=== PATIENT | male | born 1960 | race Caucasian/White ===

== ENCOUNTER 2016-10-20 11:06 | Inpatient (IN) | payer OTHER, MEDICAID ==
[~2016-10-20] VITALS: Ht 182.9 cm; Wt 100.7 kg
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
[~2016-10-20 11:06] MED LIST: NORCO 5-325 MG1 TAB PO
[2016-10-20 11:35] LABS: BASOPHIL % 0.2 %; EOSINOPHIL % 0.2 %; HEMATOCRIT 40.4 % (37.0-53.0); HEMOGLOBIN 13.2 g/dL (12.0-17.0); IMMATURE GRANULOCYTE # 0.1 K/uL (0.0-0.3); IMMATURE GRANULOCYTE % 0.3 %; LYMPHOCYTE # 1.6 K/uL (0.8-4.0); LYMPHOCYTE % 9.6 %; MCH 29.3 pg (27.0-34.0); MCHC 32.7 gm/dL (32.0-36.5); MCV 89.8 fl (83.0-98.0); MONOCYTE # 0.9 K/uL (0.0-1.0); MONOCYTE % 5.8 %; MPV 10.4 fl (9.4-12.4); NEUTROPHIL # (ANC) 13.6 K/uL (1.4-9.0); NEUTROPHIL % 83.9 %; NRBC % 0 /100WBC (0-0.00); PLATELET COUNT 148 K/uL (150-450); RDW-CV 12.7 % (11.9-14.6); WBC 16.2 K/uL (4.0-11.0)
[2016-10-20 11:37] LABS: PCO2 44 mmHg (35-45)
[2016-10-20 11:39] LABS: BICARBONATE 23.9 mmol/L (18.0-23.0); PO2 21 mmHg (80-90)
[2016-10-20 11:47] LABS: ANION GAP 10.2 (10.0-19.0); BLOOD UREA NITROGEN 14 mg/dL (6-24); CHLORIDE 112 mMol/L (96-110); CREATININE 0.9 mg/dL (0.6-1.3); ESTIMATED GFR (MDRD EQUATION) > 60; POTASSIUM 4.2 mMol/L (3.7-5.1); SODIUM 143 mMol/L (135-145)
[2016-10-20 11:53] LABS: INR - (THERAPEUTIC) 1.04 (0.92-1.07); PROTIME 10.9 SECONDS (9.8-11.4); PTT 26 SECONDS (25-32)
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
[2016-10-21 05:27] LABS: BASOPHIL % 0.2 %; HEMATOCRIT 36.6 % (37.0-53.0); IMMATURE GRANULOCYTE # 0.1 K/uL (0.0-0.3); IMMATURE GRANULOCYTE % 0.4 %; LYMPHOCYTE # 0.7 K/uL (0.8-4.0); LYMPHOCYTE % 5.3 %; MCH 29.6 pg (27.0-34.0); MCHC 32.8 gm/dL (32.0-36.5); MCV 90.4 fl (83.0-98.0); MONOCYTE # 0.7 K/uL (0.0-1.0); MONOCYTE % 5.2 %; MPV 10.8 fl (9.4-12.4); NEUTROPHIL # (ANC) 11.6 K/uL (1.4-9.0); NEUTROPHIL % 88.9 %; NRBC % 0 /100WBC (0-0.00); RBC 4.05 M/uL (4.00-6.00)
[2016-10-21 05:28] LABS: PLATELET COUNT 117 K/uL (150-450)
[2016-10-21 05:48] LABS: ALK PHOS 44 IU/L (33-138); ALT 18 IU/L (12-78); AST 21 IU/L (10-40); BLOOD UREA NITROGEN 9 mg/dL (6-24); CALCIUM 7.6 mg/dL (8.5-10.5); CHLORIDE 107 mMol/L (96-110); CO2 26 mMol/L (22-32); CREATININE 0.8 mg/dL (0.6-1.3); ESTIMATED GFR (MDRD EQUATION) > 60; SODIUM 139 mMol/L (135-145); TOTAL BILIRUBIN 0.7 mg/dL (0.0-1.5); TOTAL PROTEIN 5.4 g/dL (6.0-8.4)
[2016-10-21 06:30] LABS: BILIRUBIN URINE NEGATIVE (NEGATIVE); BLOOD URINE 50 /UL (NEGATIVE); COLOR URINE YELLOW (YELLOW); GLUCOSE URINE 50 mg/dL (NEGATIVE); KETONE URINE NEGATIVE (NEGATIVE); LEUKOCYTES URINE NEGATIVE /UL (NEGATIVE); NITRITE URINE NEGATIVE (NEGATIVE); PROTEIN URINE 15 mg/dL (NEGATIVE); TURBIDITY URINE CLEAR (CLEAR); UROBILINOGEN URINE 1 mg/dL (NORMAL)
[2016-10-21 06:38] LABS: BACTERIA URINE NEGATIVE (NEGATIVE); EPITHELIAL URINE 0-2 #/HPF (NEGATIVE); WBC URINE RARE #/HPF (NEGATIVE)
--- NOTE | 2016-10-21 13:18 | NUR ---
10/21/16: SECOND ASSESSMENT WAS NOT CHARTED DUE TO THE PT BEING IN SURGERY AT THIS TIME. YUERN
--- NOTE | 2016-10-21 17:07 | NUR ---
Significant Event: PT WENT TO SURGERY FROM [id number] FOR AN ORIF OF L)TIBIAL PLATEAU FRACTURE. PT IS ALERT AND ORIENTED X3. PERRLA. ABLE TO WIGGLE TOES TO L)FOOT; HAS FULL SENSATION; DENIES ANY NUMBNESS/TINGLING. STRICT NON-WEIGHT BEARING TO L)LEG. VITAL SIGNS STABLE. ON 2 LITERS PER NASAL CANNULA; PT IS A SMOKER AND NEEDS ENCOURAGEMENT WITH INCENTIVE SPIROMETER. BRADYCARDIA AT TIMES WITH RATES IN THE 50'S. HANLEY PATENT, DRAINING YELLOW URINE. R)FOOT PUMP ON. IV TO L)WRIST SALINE LOCKED; IV TO R)WRIST INFUSING IV FLUIDS WITHOUT COMPLICATIONS. REGULAR DIET; HAS TOLERATED JELLO AND APPLESAUCE WELL. CAM BOOT TO L)FOOT IS INTACT; L)LEG IMMOBILIZER IN PLACE. ICE PACK APPLIED TO L)KNEE. 2 PERCOCETS GIVEN AT 1356 IN PACU. 4 MG IV MORPHINE GIVEN AT 1610. HAS COMPLAINED OF L)LEG PAIN. HAS BEEN AT BEDSIDE SINCE RETURNING FROM PACU. Follow up: PAIN MANAGEMENT, CONTINUE TO MONITOR
[2016-10-22 04:30] LABS: BASOPHIL % 0.1 %; EOSINOPHIL # 0.1 K/uL (0.0-0.5); EOSINOPHIL % 0.4 %; HEMATOCRIT 32.4 % (37.0-53.0); HEMOGLOBIN 10.6 g/dL (12.0-17.0); IMMATURE GRANULOCYTE # 0.1 K/uL (0.0-0.3); IMMATURE GRANULOCYTE % 0.4 %; LYMPHOCYTE # 1.2 K/uL (0.8-4.0); LYMPHOCYTE % 8.4 %; MCH 29.9 pg (27.0-34.0); MCHC 32.7 gm/dL (32.0-36.5); MCV 91.3 fl (83.0-98.0); MONOCYTE # 0.9 K/uL (0.0-1.0); MONOCYTE % 6.3 %; MPV 10.8 fl (9.4-12.4); NEUTROPHIL % 84.4 %; NRBC % 0 /100WBC (0-0.00); PLATELET COUNT 103 K/uL (150-450); RBC 3.55 M/uL (4.00-6.00); WBC 14.2 K/uL (4.0-11.0)
--- NOTE | 2016-10-22 05:53 | NUR ---
PT WITH IMPROVING PAIN CONTROL THIS SHIFT. PEROCET GIVEN X3 AND MORPHINE IVP GIVEN X1. PT CONTINUES TO HAVE ICE ON KNEE AT ALL TIMES. IMMOBILIZER REMAINS IN PLACE. PT STOOD AND PIVOTED FROM BED TO CHAIR, WAS UP IN CHAIR X1H, THEN STOOD AND PIVOTED BACK TO BED. CMS CHECKS REMAIN INTACT OTHER THAN +2-+3 PITTING EDEMA IN LEFT LOWER EXTREMITY. ELIEZER SCOTT RN
--- NOTE | 2016-10-22 12:10 | NUR ---
Significant Event: PT ALERT AND ORIENTED X3. DENIES NUMBNESS/TINGLING. PERRLA. STRICT NON-WEIGHT BEARING TO L)LEG!!! 2-ASSIST/GAIT BELT/WALKER. HAS BEEN UP IN THE CHAIR SINCE BREAKFAST. O2 AT 1 LITER PER NASAL CANNULA. BRADYCARDIA WITH RATES IN THE 50'S. HANLEY PATENT, DRAINING YELLOW URINE. R)DEB HOSE ON; R)FOOT PUMP ON. IV TO L)WRIST SALINE LOCKED. REGULAR DIET; GOOD APPETITE. LAST BM ON 10/19/16; PASSING FLATUS. L)LEG IMMOBILIZER INTACT AND L)CAM BOOT ON. ABLE TO WIGGLE TOES TO L)FOOT. 1 PERCOCET GIVEN AT 0858. 4 MG IV MORPHINE GIVEN ABOUT 1145. CARES HANDED OFF TO MADDY LOVE RN THIS MORNING. Follow up: ENCOURAGE INCENTIVE SPIROMETER, MONITOR PAIN
--- NOTE | 2016-10-22 17:50 | NUR ---
Pt up to chair. STRICT NON-WT BEARING TO LEFT LEG PER . Pt alert and oriented x3. santa removed per nursing protocol at 1700. Pt can hop on R foot with walker,gait belt and one assist to bathroom. Morphine given 4 mg at 1145 for c/o pain in left leg. Lyme 2 tabs given at 1530. Relief stated. pt sleeping at 1620. VSS. Neuro assessment intact. Adequate sensation and movement in left extremity. Saline locked.
--- NOTE | 2016-10-23 06:05 | NUR ---
Significant Event: PATIENT IS ALERT AND ORIENTED. VERY PLEASANT. UP X1 ASSIST. VERY STRICT NWB STATUS TO LEFT LOWE EXT. IMMOBILIZER ON AT ALL TIMES. COMPLAINS OF KNEE DISCOMFORT. LAST PERCOCET AT 0130. HX SMOKING. MOIST NON-PRODUCTIVE COUGH. O2 AT 1.5 L PER NC AND MAINTAINS O2 SAT OF 93%. Follow up:
--- NOTE | 2016-10-23 14:59 | NUR ---
Significant Event: PT A&O x3. VSS, on 1L per nasal cannula. Pain well controlled with percocet 2 tabs last at 1120. PT ambulates with walker, gait belt and 1 assist. Immobilizer and cam boot to L)leg/foot, NWB on L)leg. IV patent. Possible dc to home tommorow. Follow up:
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
--- NOTE | 2016-10-24 05:50 | NUR ---
Significant Event: Patient A/O x 3. Perrla. Denies N/T. Pain to left knee, rating at a 5-7 this shift. Moves upper extremities without difficulty as well as lower right. Left leg is in immobilizer and cam boot. Can wiggle left toes. Edema present. VSS. Afebrile. Lungs clear and dim in bases on 1.5 L this shift. Moist cough. No bm this shift. SBA, uses walker, strict non-weight bearing to the left leg. PIV to left wrist SL. Percocet given last at 0222 x 2 tabs. [place] given last at 0438 x 2 tabs. Gabapentin given at HS, relief noted. Follow up: Home with home health when ready.
--- NOTE | 2016-10-24 11:30 | NUR ---
Spoke with patient this a.mPravin Did observe him and his working with therapy. contacting [employer] to borrow walker, crutches, w/c etc. If unable to borrow them they will buy them. Patient says he thinks he is going home today. Will follow.
[2016-10-24] MEDS ORDERED: COLACE100 MG PO (11:57)
[2016-10-24] MEDS ORDERED: PEPCID20 MG PO (11:58)
[2016-10-24] MEDS ORDERED: LOVENOX 3030 MG/0.3 SUB-Q (11:58)
[2016-10-24] MEDS ORDERED: NEURONTIN300 MG PO (11:59)
[2016-10-24] MEDS ORDERED: PERCOCET 5-3251 EACH PO (12:02)
[2016-10-24] MEDS ORDERED: TYLENOL EXTRA500 MG PO (12:04)
--- NOTE | 2016-10-24 14:52 | NUR ---
1300 Reviewed DC plan with pt and his spouse. Acknowledges understanding of good pain control, s/s of increase pain, swelling, redness, strict non weight bearing on L leg. Cam boot/immobilizer to remain on at all times. Rx for meds and appointment cards given to pt. Spouse was able to procure a walker prior to DC. Pt was dismissed in stable condition without concerns.
[2016-12-05] MEDS ORDERED: ASPIRIN LO-DOSE81 MG PO (09:51)
== END 2016-10-24 13:10 | disposition disaster alternative care site (69) | DRG 494 ==
LOC: GACC 11:06 → GNTU 12:24
PROVIDERS: Orthopaedic Surgery; ADMIT Surgery
DX: S82.142A Displaced bicondylar fracture of left tibia, initial encounter for closed fracture (principal); I95.9 Hypotension, unspecified; S82.52XA Displaced fracture of medial malleolus of left tibia, initial encounter for closed fracture; R00.1 Bradycardia, unspecified; S91.312A Laceration without foreign body, left foot, initial encounter; V23.4XXA Motorcycle driver injured in collision with car, pick-up truck or van in traffic accident, initial encounter; N32.9 Bladder disorder, unspecified; F17.200 Nicotine dependence, unspecified, uncomplicated; Z85.51 Personal history of malignant neoplasm of bladder; R40.2413 Glasgow coma scale score 13-15, at hospital admission
CPT/HCPCS: C1713; G0390; G0480; J0690; J1170; J1650; J2250; J2270; J3010; J7030; J7120; J7121; Q9967

== ENCOUNTER → 2016-10-30 | Outpatient (CLI) | payer OTHER ==
[~2016-10-30] MED LIST changes: +ASPIRIN LO-DOSE81 MG PO; +COLACE100 MG PO; +KEFLEX500 MG PO; +LOVENOX 3030 MG/0.3 SUB-Q; +NEURONTIN300 MG PO; +NICOTINE PATCH1 EACH TRANS; +OXYCONTIN EXTEN10 MG PO; +PEPCID20 MG PO; +PERCOCET 5-3251 EACH PO; +SURFAK240 MG PO; +TYLENOL EXTRA500 MG PO
--- NOTE | ~2016-10-30 | ENPV ---
Vascular Lower Extremities DVT Study Procedure Demographics Patient Name HADLEY HUNT Date of Study 10/30/2016 Patient Number [id number] Gender Male Date of 1960 Age 56 Visit Number [id number] Height Accession Number [id number] Weight Room Number BSA BMI Referring Markus Chua MD Interpreting Kyle Diego MD Physician Physician Physician Ordering Physician [employer] Lounge Attendant Susan Michele [facility] Conclusions Summary Normal venous duplex examination of the legs bilaterally with normal venous Doppler signals noted throughout. No evidence of thrombophlebitis is noted bilaterally in the deep and superficial veins of the legs. Small calf thrombi cannot be excluded. Procedure Type of Study: Veins:Lower Extremities DVT Study, Lower Extremity Left. Appropriate Use Criteria:9 Patient Status:Routine. Study Location:Inpatient Portable. Technical Quality:Adequate visualization. Velocities are measured in cm/s ; Diameters are measured in cm Left Lower Extremities DVT Study Measurements Left 2D and Doppler Measurements + + + + +------+------+ + !Location !Visualized!Compressibility!Thrombosis!Signal!Reflux!Reflux ! ! ! ! ! ! ! !(sec) ! + + + + +------+------+ + !GSV Thigh !Yes !Yes !None !Phasic!No ! ! + + + + +------+------+ + !Common !Yes !Yes !None !Phasic!No ! ! !Femoral ! ! ! ! ! ! ! + + + + +------+------+ + !Prox !Yes !Yes !None !Phasic!No ! ! !Femoral ! ! ! ! ! ! ! + + + + +------+------+ + !Mid Femoral!Yes !Yes !None !Phasic!No ! ! + + + + +------+------+ + !Dist !Yes !Yes !None !Phasic!No ! ! !Femoral ! ! ! ! ! ! ! + + + + +------+------+ + !Popliteal !Yes !Yes !None !Phasic!No ! ! + + + + +------+------+ + !Gastroc !Yes !Yes !None !Phasic!No ! ! + + + + +------+------+ + !PTV !Yes !Yes !None !Phasic!No ! ! + + + + +------+------+ + !Peroneal !Yes !Yes !None !Phasic!No ! ! + + + + +------+------+ + Impressions Left Impression Negative for DVT Signature dtt: SERGE BRANCH dtd: 10/30/16 1519 Physician Self Edit
== END | disposition disaster alternative care site (69) ==
LOC: GCAR 15:00
DX: M79.605 Pain in left leg (principal); M79.89 Other specified soft tissue disorders

== ENCOUNTER 2016-11-02 14:17 | Inpatient (IN) | payer OTHER, MEDICAID ==
[~2016-11-02] VITALS: Ht 182.9 cm; Wt 93.2 kg
--- NOTE | ~2016-11-02 | CON ---
PATIENT'S NAME: HADLEY MELENDEZ [facility] AGE: 56 Y [address] ROOM: [address] [address] LOCATION: [facility] ADMIT DATE: 11/02/2016 Consultation DISCHARGE DATE: FAMILY PHYSICIAN: Arslan Godinez DO ATTENDING PHYSICIAN: MARINA WETZEL Mr. Melendez was brought to the hospital for parenteral analgesia yesterday (approximately 1 week status post open reduction and internal fixation of left bicondylar tibial plateau fracture and left ankle medial malleolus fracture). He slept well last night. The amount of swelling in his legs has decreased dramatically with elevation overnight (despite the fact that the patient had repeatedly emphatically reassured us that he has been keeping his leg elevated at home). There had been mild erythema at the anterior jo and dorsal foot, but this has resolved over the last 24 hours. The patient felt almost well enough to return home early this afternoon. In fact, he requested to be discharged. However, pain has increased significantly, and he reports inadequate analgesia. He localizes his discomfort to the distal half of the lower leg (circumferentially). He denies numbness or paresthesias at his foot. He is able to actively dorsiflex his great toe and ankle against gravity and plantar flex with 4/5 motor strength. Part of the incision at the knee and medial ankle are clean, dry, and intact without erythema. There was minimal swelling at the knee. The posterior calf compartment is soft. The proximal half of the anterior compartment is soft and nontender. There is tenderness at the distal half of the anterior compartment. I am concerned regarding the potential for an evolving compartment syndrome. I recommended that he be taken to the operating room for compartment pressure assessment and anterior compartment fasciotomy. We reviewed risks, benefits, limitations, and alternatives to this. We have discussed potential adverse sequelae of compartment syndrome. We specifically discussed the potential for infection, neurovascular complications, and the potential that we might not be able to close the wound primarily and, thus, the potential that he might need to be brought back to the operating room for fasciotomy closure at a later date. MD DEBBIE COLEY/edda /[id number] d: 11/04/16 0332 t: 11/16/16 2036, CONSULTATION REPORT
--- NOTE | ~2016-11-02 | OR ---
PATIENT'S NAME: HADLEY HUNT [facility] AGE: 56 Y [address] ROOM: [place] [address] LOCATION: [facility] [place] ADMIT DATE: 11/02/2016 OR/Procedure Report DISCHARGE DATE: FAMILY PHYSICIAN: Arslan Godinez DO ATTENDING PHYSICIAN: MARINA WETZEL SURGEON: Marina Wetzel MD ANIMAL NURSE: DATE OF PROCEDURE: 11/03/2016 PREOPERATIVE DIAGNOSIS: Potential evolving left anterior compartment syndrome. POSTOPERATIVE DIAGNOSIS: No compartment syndrome. PROCEDURE PERFORMED: 1. Left leg anterior and posterior compartment pressure measurement. 2. Left anterior compartment fasciotomy. ANESTHESIA: Spinal. ESTIMATED BLOOD LOSS: Less than 5 mL. TOURNIQUET TIME: 0 minutes. INDICATION FOR PROCEDURE: This is a 56-year-old male complaining of inadequate analgesia and significant escalating left anterior distal leg pain. He is over 1 week status post open reduction and internal fixation of a left bicondylar tibial plateau fracture and left medial malleolus fracture. He sustained an associated abrasion at his anterior jo. He was discharged home approximately 48 hours after the surgery but has been containing with persistent and progressive discomfort. He has had a negative Doppler. He had considerable swelling of his leg when he was admitted to for observation yesterday. The swelling in the leg had decreased significantly with elevation of the leg over the last 24 hours. The patient had previously reassured us that he had been elevating the leg significantly at home, but thought does not appear to be case. Despite decreased swelling and resolution of erythema, he complains of inadequate analgesia. There is significant tenderness over the distal half of the anterior compartment. This is where he presently localizes the majority of his discomfort. We have checked multiple times to be certain that his brace is not in this area. In fact, I released the straps and his brace this afternoon and pain has continued to escalate in this area despite the brace being off. Interestingly, he has minimal discomfort at the knee and the proximal half of the leg. Due to concerns regarding potential evolving compartment syndrome, the patient was presently taken to the operating room to be absolutely certain that this is not the case. Risks, benefits, PATIENT'S NAME: HADLEY HUNT [facility] AGE: 56 Y [address] ROOM: [place] [address] LOCATION: [facility] [place] ADMIT DATE: 11/02/2016 OR/Procedure Report DISCHARGE DATE: FAMILY PHYSICIAN: Arslan Godinez DO ATTENDING PHYSICIAN: MARINA WETZEL limitations, and alternatives to fasciotomy and compartment pressure assessments have been reviewed. We have specifically discussed the potential for infection and sensory nerve trauma. Adverse sequelae of compartment syndrome have been reviewed as well. DESCRIPTION OF PROCEDURE: The patient positioned supine after administration of spinal anesthesia. The brace was removed from the left leg. Photograph of the left leg was obtained documenting no residual erythema and mild swelling at the left foot and ankle but no swelling at the left proximal calf or knee. The left lower extremity was prepped and draped with vigilant sterile technique. Prophylactic antibiotics had been administered. No tourniquet was utilized. The [employer] compartment pressure josie was calibrated and superficial posterior and anterior compartment pressures were assessed. Posterior compartment pressure was 8, anterior compartment pressure was 15. A 10 cm anterolateral longitudinal incision was made over the middle to distal thirds of the anterior compartment. Blunt dissection proceeded down to the fascia. The fascia was divided in line with the overlying skin incision. The underlying musculature appeared normal and contracted well when stimulated with electrocautery. There was no discoloration of the musculature. The anterior compartment did not appear to have been under any pressure. The incision was thoroughly irrigated with sterile saline containing bacitracin. The fascia was not closed. The skin was closed with superficial buried interrupted 3-0 Vicryl followed by surgical ene. The dressings consisted of Xeroform gauze followed by sterile gauze, ABD pad, and cast padding. The heel was well padded with cast padding. The knee brace was reapplied with the knee locked at 30 degrees of flexion. There were no complications. MD DEBBIE COLEY/edda /[id number] d: 11/04/16 0331 t: 11/16/162038, OPERATIVE SUMMARY
--- NOTE | ~2016-11-02 | DS ---
PATIENT'S NAME: HADLEY HUNT [facility] AGE: 56 Y [address] ROOM: [place] [address] LOCATION: [facility] [place] ADMIT DATE: 11/03/2016 Discharge Summary DISCHARGE DATE: 11/06/2016 FAMILY PHYSICIAN: Arslan Godinez DO ATTENDING PHYSICIAN: Justin Aparicio This is a 56-year-old male. PRIMARY DIAGNOSIS: Potential evolving compartment syndrome, left lower extremity. SECONDARY DIAGNOSIS: Tobacco use. PROCEDURE PERFORMED: Left leg anterior and posterior compartment pressure measurement and left anterior compartment fasciotomy. POSTOPERATIVE DIAGNOSIS: No compartment syndrome. HISTORY: The patient is a 56-year-old male, complaining of inadequate analgesia and significant escalating left anterior distal leg pain. He is over 1 week status post open reduction and internal fixation of left bicondylar tibial plateau fracture and left medial malleolus fracture. He sustained an associated abrasion at his anterior jo. He was discharged home approximately 48 hours after the surgery, but has been complaining of persistent and progressive discomfort. He has had a negative Doppler. He was admitted on 11/03 for pain management for observation. Despite decreased swelling and resolution of erythema, he complained of inadequate analgesia. Please refer to his consultation notes as well as his admission history and physical. HOSPITAL COURSE: The patient underwent the above specified procedure on 11/03/2016 without complications. Spinal anesthesia was utilized. He received 24 hours of perioperative prophylactic antibiotics. He remained hemodynamically stable and neurovascularly intact throughout his entire hospital course. His postoperative deep venous prophylaxis consisted of low- molecular-weight heparin, early mobilization, and pneumatic compression devices. He received daily physical therapy for gait training and transfer training, and progressed decently in physical therapy on his date of discharge on 11/06/2016. Incisions were healing well and showed no signs of infection. DISPOSITION: Home. DISCHARGE DIET: As tolerated. DISCHARGE ACTIVITY: He is to be nonweightbearing of the left lower extremity. PATIENT'S NAME: HADLEY HUNT [facility] AGE: 56 Y [address] ROOM: [place] [address] LOCATION: [facility] [place] ADMIT DATE: 11/03/2016 Discharge Summary DISCHARGE DATE: 11/06/2016 FAMILY PHYSICIAN: Arslan Godinez DO ATTENDING PHYSICIAN: Justin Aparicio There is to be no strengthening. There are strict left heel decubitus ulcer precautions. No contact or pressure to the left AFO. He is to wear his AFO at all times. He is to wear his left knee immobilizer brace at all times. He is to have no range of motion of the left knee. There is to be no dressing changes. He is to notify Dr. Aparicio immediately if he experiences increased pain, fevers, chills, erythema, or drainage. DISCHARGE MEDICATIONS: 1. Lovenox 30 mg subcutaneous twice daily for 30 days for postoperative DVT prophylaxis. His last dose will be on December 03, 2016. 2. OxyContin extended release 10 mg 1 tablet every 12 hours p.r.n. for pain. 3. Percocet 5/325 mg 1 to 2 tablets p.o. every 6 hours p.r.n. for pain. 4. Gabapentin 300 mg 1 tablet b.i.d. for pain. 5. Nicotine patch 21 mg transdermal every 24 hours for smoking cessation. He was then instructed to continue all his other preadmission medications as instructed by his internal medicine doctor. FOLLOWUP: Followup appointment is to be with Dr. Aparicio's office on 11/10/2016 for his initial postoperative evaluation. SOHAN TEAGUE PA-C FOR MD MITCHELL COLEY/edda /[id number] d: 11/21/16 0338 t: 11/24/16 1553, DISCHARGE SUMMARY
[~2016-11-02 14:17] MED LIST changes: -ASPIRIN LO-DOSE81 MG PO; -KEFLEX500 MG PO; -NICOTINE PATCH1 EACH TRANS; -OXYCONTIN EXTEN10 MG PO; -SURFAK240 MG PO
[2016-11-02] MEDS ORDERED: OXYCONTIN EXTEN10 MG PO (16:23)
[2016-11-02] MEDS ORDERED: NICOTINE PATCH1 EACH TRANS (16:26)
[2016-11-02] MEDS ORDERED: KEFLEX500 MG PO (16:26)
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
--- NOTE | 2016-11-02 17:01 | NUR ---
Significant Event: PT ARRIVED ON FLOOR AT 1430. PT HAS INCREASED PAIN FROM LACERATION ON LT LEG AND HEEL. LT LEG ELEVATED UP HIGH ON PILLOWS. ICE TO LT LEG. IV DILUADID AND PERCOCET GIVEN. IV TORODOL ALSO GIVEN. PT RATED PAIN AT A 7 UPON ARRIVAL. RESTS QUIETLY IN THE BED. LT FOOR PULSE STRONG WITH DOPPLER. Follow up:
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
--- NOTE | 2016-11-03 12:30 | NUR ---
SPOKE TO PATIENT REGARDING CM AND OUR ROLE. PATIENT LIVES IN OWN HOME WITH SPOUSE HE HAS FRONT WHEELED WALKER AT HOME. HE HAS A RAMP THAT GOES INTO HIS HOUSE. PATIENT DOES NOT ANTICIPATE ANY DISCHARGE NEEDS AT THIS TIME. PATIENT IS PLANNING ON RETURNING HOME ONCE HE IS READY FOR DISCHARGE.
--- NOTE | 2016-11-03 14:24 | NUR ---
Significant Event: PT ALERT AND ORIENTED. UP TO THE BATHROOM WITH 1 ASSIST. PT HAS INCREASED PAIN SINCE BEING UP. HAS LT LEG ELEVATED ON 4 PILLOWS AND ICE UNDER LEG. TAKES PERCOCET EVERY 2 HOURS. IV MORPHINE PUSH GIVEN AFTER RETURNING TO BED. DECREASED PAIN TO A 5. PERCOCET GIVEN THIS AFTERNOON. WILL UPDATE YOU WITH LAST DOSE. DRESSING TO LEG AND BRACE INTACT. PEDAL PULSE OBTAINED ER DOPPLER DUE TO EDEMA. UNSURE OF DISCHARGE DATE. Follow up:
--- NOTE | 2016-11-03 18:37 | NUR ---
Assumed cares at 1500, patient was feeling fairly comfortable. Refused to get OOB. Left leg was maximally elevated and iced. Pneumatic to right lower extremity. Pain started to increase around 1700. Gave Percocet and Morphine as ordered. Pt continued to complain of increasing pain. Not consistent on location of pain. One assessment was calf pain, then ankle pain, then jo pain. Dr. Aparicio came to the room and assessed patient as well. He noted no signs of skin breakdown or compartment syndrome. Perplexed by the inconsistent pain locations and change in patient condition. He stated that the leg looked much better than yesterday. I encouraged him to wiggle his toes, elevate and ice as directed by Dr. Aparicio. Pt did have an increase in temp and lungs sounded a little coarse. I instructed to him to use and show me he is using his spirometer. I instructed him on the importance of use and that he needed to use it every hour WA, 10 breaths. Brace was left opened and incisions as Dr. Aparicio instructed to let them remain that way. Will update Dr. Aparicio on condition within one hour.
--- NOTE | 2016-11-04 06:01 | NUR ---
Significant Event: Patient at the beginning of the shift the temperature was a high as 100.9, but better now. MD took patient to surgery for L) leg fasciotomy. From PACU at 2335. Slight movement in foot. Denies numbness and tingling. On 1 L of oxygen nasal cannula. Percocet last at 0438. Morphine at 0538. Leg brace on. L) heel decubitus precautions. L) heel pad on at all times. No ROM to L) knee. Voids without difficulty. Dressing is clean, dry and intact. Follow up:
--- NOTE | 2016-11-04 07:16 | NUR ---
At 0700 assessment the patient rated pain 3 out of 10. He said it was tolerable. He complained of no pain or numbness or tingling in R) leg or foot when asked to move. VSS. CSM WNL. Weaned off of oxygen.
--- NOTE | 2016-11-04 13:10 | NUR ---
Significant Event: AOx3. VSS. CSM WNL. NWB to L) leg. Dressing CDI. Brace on at all times. Percocet given Q2hrs PRN for pain. On room air. Nicotine patch on L) arm. IV SL. Had bag bath this morning. Voids per urinal. Elevate and ice to L)leg. Follow up:
--- NOTE | 2016-11-05 03:53 | NUR ---
Patient alert and oriented, can be agitated at times, patient stated his ankle got "twisted" during repositioning however leg brace, chidi wrap and heel protecter where all in place during repositioning, called and notified him of the patient statement xrays where done of the ankle, still has lots of pain in the ankle has had IV Morphine and percocet for pain control, has rested very well this shift.
--- NOTE | 2016-11-05 09:28 | NUR ---
Significan Event: Pt AOX3. VSS, CSM WNL. Brace to left leg on and intact. Keep left leg elevated and iced. Nothing under left heel. NWB to left. Up with one assist, walker and gait belt. Typically refuses to get out of bed despite education of future complications. Pain is tolerable this morning with a rating of 4. States that he is going to a long term until he feels comfortable getting up without pain. Encourage IS. Follow up:
--- NOTE | 2016-11-05 19:07 | NUR ---
Patient is alert and oriented. Took over cares at 1000. VSS, on room air. Non-weight bearing to L) leg. Dressing with braces on lower L) leg, knee incision from previous surgery is open to air with steri-strips. Complaints of pain throughout the shift with Percocets given around every two hours, last at 1850. 1 assist with walker and gait belt. Up to chair for all meals. Nothing under left heel. Plans for placement at SNF.
--- NOTE | 2016-11-06 04:38 | NUR ---
Significant Event: Patient requests percocet 1 tab every 2 hours to help control his pain. Reports pain in right ankle at 4-5. Very particular about his transfers and cares. Alert and orientated. Needs encouragement to increase activity. Neuro check ok. Follow up: Continue to monitor
[2016-11-06] MEDS ORDERED: SURFAK240 MG PO (12:13)
--- NOTE | 2016-11-06 12:50 | NUR ---
D:Orders received for patient to be dismissed. I:Dismissal instructions were prepared and reviewed with the patient and his family. The following instructions were reviewed: diet and activity recommendations for home as outlined by Loida Mcclendon PA-C, abnormal s/s to monitor for and to report to the MD if they occur, home medications/new prescription medications, dressing/brace care for home, and plans for pt to follow up with Dr. Aparicio on Sunday11/10/16 for suture removal. Lauro teaching reviewed and given to pt on the followint topics: Colace, Preventing DVT After Surgery, Having Ankle Fracture Open Reduction & Internal Fixation. R:The patient verbalized understanding of above teaching and denied further questions at this point in time. P:The patient's primary nurse, Helen HASKINS, was informed that the dismissal teaching had been completed. The virtual tech was going to take the paperwork in for the patient to have and sign. The patient will be dismissed later this afternoon. Marcus HASKINS
--- NOTE | 2016-11-06 15:25 | NUR ---
Pt discharged at 1430 to go home with . He is up with one assist. No weight bearing left leg. Pt keeps left leg elevated high with no pressure on heel. He has refused ice to foot/ankle. Pt has had percocet po with last at 1400 for pain relief rated at 4 at that time. Pt CSM WNL to left foot. Good pedal pulse, toes warm, freeman well. states sensation to touch. Some edema bottom of foot. Has brace on leg and AFO on left foot. Skin checked left heel under cast padding that didn't have other dressing on it and no pressure areas noted. Pt uses IS at 2530. Discharge instructions given and pt discharged with and belongings in stable condition
[2016-12-05] MEDS ORDERED: ASPIRIN LO-DOSE81 MG PO (09:51)
== END 2016-11-06 14:40 | disposition disaster alternative care site (69) | DRG 941 ==
LOC: G3N 14:17 → GMSU 11-03 21:30
PROVIDERS: ADMIT Orthopaedic Surgery
PROC: 0KNT0ZZ Release Left Lower Leg Muscle, Open Approach (ICD-10-PCS; principal; 2016-11-03)
DX: G89.18 Other acute postprocedural pain (principal); M79.662 Pain in left lower leg; S80.812A Abrasion, left lower leg, initial encounter; W54.1XXA Struck by dog, initial encounter; Z87.81 Personal history of (healed) traumatic fracture; Z72.0 Tobacco use
CPT/HCPCS: G0378; G0379; J0690; J1170; J1650; J1885; J2270; J3480; J7030

== ENCOUNTER → 2016-12-08 | Day surgery (SDC) | payer SELFPAY ==
[~2016-12-08] VITALS: Ht 182.9 cm; Wt 90.3 kg
[~2016-12-08] MED LIST changes: +ASPIRIN LO-DOSE81 MG PO; +KEFLEX500 MG PO; +NICOTINE PATCH1 EACH TRANS; +OXYCONTIN EXTEN10 MG PO; +SURFAK240 MG PO
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
[2016-12-08 07:00] LABS: BASOPHIL % 0.4 %; EOSINOPHIL # 0.2 K/uL (0.0-0.5); EOSINOPHIL % 2.2 %; HEMOGLOBIN 14.3 g/dL (12.0-17.0); IMMATURE GRANULOCYTE % 0.4 %; LYMPHOCYTE # 2.3 K/uL (0.8-4.0); LYMPHOCYTE % 22.4 %; MCV 91.5 fl (83.0-98.0); MONOCYTE # 0.7 K/uL (0.0-1.0); MPV 9.7 fl (9.4-12.4); NEUTROPHIL % 67.6 %; NRBC % 0 /100WBC (0-0.00); RDW-CV 13.8 % (11.9-14.6); WBC 10.4 K/uL (4.0-11.0)
[2016-12-08 07:01] LABS: HEMATOCRIT 43.9 % (37.0-53.0); MCH 29.8 pg (27.0-34.0); MCHC 32.6 gm/dL (32.0-36.5); PLATELET COUNT 238 K/uL (150-450)
[2016-12-08 07:15] LABS: ALBUMIN 3.8 gm/dL (3.5-5.0); ALK PHOS 77 IU/L (33-138); ALT 22 IU/L (12-78); ANION GAP 11.2 (10.0-19.0); AST 14 IU/L (10-40); BLOOD UREA NITROGEN 17 mg/dL (6-24); CALCIUM 9.3 mg/dL (8.5-10.5); CHLORIDE 108 mMol/L (96-110); CO2 28 mMol/L (22-32); ESTIMATED GFR (MDRD EQUATION) > 60; POTASSIUM 4.2 mMol/L (3.7-5.1); SODIUM 143 mMol/L (135-145); TOTAL BILIRUBIN 0.4 mg/dL (0.0-1.5); TOTAL PROTEIN 7.2 g/dL (6.0-8.4)
== END | disposition disaster alternative care site (69) ==
LOC: GPOC 12-05 09:00 → GSDC 06:14 → GPOC 09:00
PROVIDERS: Urology
PROC: 0TBB8ZZ Excision of Bladder, Via Natural or Artificial Opening Endoscopic (ICD-10-PCS; principal; 2016-12-08)
PROC: 3E0M705 Introduction of Other Antineoplastic into Peritoneal Cavity, Via Natural or Artificial Opening (ICD-10-PCS; 2016-12-08)
DX: C67.9 Malignant neoplasm of bladder, unspecified (principal); F17.210 Nicotine dependence, cigarettes, uncomplicated; Z98.890 Other specified postprocedural states; Z79.82 Long term (current) use of aspirin; Z79.899 Other long term (current) drug therapy
CPT/HCPCS: J1100; J1956; J2001; J2250; J2405; J3010; J7120; J9280